=== PATIENT | male | born 1995 | race Caucasian/White ===

== ENCOUNTER 2021-06-11 19:05 | Emergency (ER) | payer OTHER ==
[2021-06-11 21:16] LABS: HEMOGLOBIN 15.5 gm/dl (14.0-17.5); RED BLOOD COUNT 5.2 M/UL (4.20-5.50); WHITE BLOOD COUNT 9.5 K/UL (4.5-11.0)
[2021-06-11 21:35] LABS: BUN/CREATININE RATIO 24 (0-10)
[2021-06-12] MEDS ORDERED: ZOFRAN ODT 4 MG4 MG PO (03:00)
[2021-06-12] MEDS ORDERED: IBUPROFEN600 MG PO (03:00)
== END 2021-06-12 03:14 | disposition home or self-care (01) ==
LOC: ER1 19:05
PROVIDERS: Physician Assistant
DX: R51.9 Headache, unspecified (principal); R11.10 Vomiting, unspecified; I10 Essential (primary) hypertension; Z20.822 Contact with and (suspected) exposure to COVID-19; F17.200 Nicotine dependence, unspecified, uncomplicated
CPT/HCPCS: 80053; 85025; 99284; U0002